=== PATIENT | female | born 1995 | race Caucasian/White ===

== ENCOUNTER 2017-10-18 11:52 | Emergency (ER) | payer OTHER ==
[2017-10-18] MEDS: LORAZEPAM 1 MG TAB PO (12:47)
== END 2017-10-18 13:26 | disposition home or self-care (01) ==
LOC: FTE 11:52
DX: F41.9 Anxiety disorder, unspecified (principal)
CPT/HCPCS: 81025; 82962; 93005; 99283-25

== ENCOUNTER 2017-11-05 22:21 | Emergency (ER) | payer OTHER ==
[2017-11-05 23:38] LABS: URINE BLOOD (Dip) POC Trace-intact (NEGATIVE); URINE GLUCOSE (Dip) POC Negative (NEGATIVE); URINE KETONES (Dip) POC Trace (NEGATIVE); URINE LEUKOCYTE EST (Dip) POC Trace (NEGATIVE); URINE NITRITE (Dip) POC Negative (NEGATIVE); URINE TOTAL PROTEIN POC Negative (NEGATIVE)
== END 2017-11-06 00:03 | disposition home or self-care (01) ==
LOC: FTE 11-06 00:03
DX: N39.0 Urinary tract infection, site not specified (principal)
CPT/HCPCS: 81003; 81025; 99283